=== PATIENT | male | born 1990 | race Caucasian/White ===

== ENCOUNTER 2020-09-03 10:25 | Emergency (ER) | payer SELFPAY ==
[2020-09-03 11:23] LABS: HEMOGLOBIN 19.6 gm/dl (14.0-17.5); RED BLOOD COUNT 6.6 M/UL (4.20-5.50)
[2020-09-03 11:43] LABS: BUN/CREATININE RATIO 11 (0-10)
[2020-09-03] MEDS ORDERED: ZOFRAN ODT 4 MG4 MG PO (14:44)
== END 2020-09-03 15:22 | disposition home or self-care (01) ==
LOC: ER1 10:25
PROVIDERS: Family Medicine
DX: R11.2 Nausea with vomiting, unspecified (principal); R19.7 Diarrhea, unspecified; R10.9 Unspecified abdominal pain; D72.829 Elevated white blood cell count, unspecified; F17.200 Nicotine dependence, unspecified, uncomplicated
CPT/HCPCS: 80053; 81001; 82150; 83690; 85025; 87045; 87046; 96374; 96375; 99284; J1885; J2405; J7030

== ENCOUNTER 2021-02-21 07:30 | Emergency (ER) | payer OTHER ==
[~2021-02-21 07:30] MED LIST: ZOFRAN ODT 4 MG4 MG PO
[2021-02-21 08:13] LABS: RED BLOOD COUNT 5.69 M/UL (4.20-5.50); WHITE BLOOD COUNT 6.3 K/UL (4.5-11.0)
[2021-02-21 08:34] LABS: BUN/CREATININE RATIO 18 (0-10)
== END 2021-02-21 09:43 | disposition home or self-care (01) ==
LOC: ER1 07:30
PROVIDERS: Physician Assistant
DX: R00.2 Palpitations (principal); F41.9 Anxiety disorder, unspecified; F17.200 Nicotine dependence, unspecified, uncomplicated
CPT/HCPCS: 71045; 80053; 82550; 82553; 83874; 84439; 84443; 84484; 85025; 93005; 99284; J7030